=== PATIENT | male | born 1990 | race African-American/Black ===

== ENCOUNTER → 2017-05-28 | Outpatient (CLI) | payer OTHER | LOC: M LRY 13:08 | DX: M25.572 Pain in left ankle and joints of left foot (principal) | CPT/HCPCS: 73610 ==

== ENCOUNTER 2024-02-10 23:03 | Emergency (ER) | payer BC, OTHER ==
[~2024-02-10] VITALS: Ht 167.6 cm; Wt 88.6 kg
[2024-02-10 23:08] VITALS: TEMP 98.5
[2024-02-11] MEDS ORDERED: NAPR-885 PO (04:13)
[2024-02-11 04:45] VITALS: BP 149/85; O2SAT 98
== END 2024-02-11 05:01 | disposition home or self-care (01) ==
LOC: M ED 23:03
DX: S86.021A Laceration of right Achilles tendon, initial encounter (principal); Y92.9 Unspecified place or not applicable; Y93.67 Activity, basketball; Y99.9 Unspecified external cause status; Z79.899 Other long term (current) drug therapy